=== PATIENT | female | born 1985 | race Caucasian/White ===

== ENCOUNTER 2022-07-03 19:09 | Emergency (ER) | payer OTHER, SELFPAY ==
[2022-07-03 19:14] VITALS: BP 112/80; PULSE 120; RESP 18; TEMP 36.8; O2SAT 100
--- NOTE | 2022-07-03 21:14 | ED.FEMALEGU ---
HPI - Female Genitourinary General Chief complaint: Vaginal Bleeding Stated complaint: heavy bleeding with period Time Seen by Provider: 07/03/22 21:12 Source: patient Mode of arrival: ambulatory Limitations: no limitations History of Present Illness HPI Narrative: Patient is a 36-year-old presenting to the emergency department for evaluation of heavy vaginal bleeding. Patient reports normal menstrual cycle beginning 7 days ago, states that has increased in heaviness over the past 36 hours with large blood clots and greater than 1 tampon every 2 hours. Patient denies any pain. No pelvic pain or cramping. Denies flank pain. She denies dysuria. Patient is denies lightheadedness or dizziness, states the amount of bleeding was making her nervous. Patient reports she was recently diagnosed with COVID, is worried that perhaps COVID could be affecting her menstrual cycle. Patient has no history of , does not believe she is . Patient denies any lightheadedness, dizziness, shortness of breath, syncopal episodes. Pt identified as non binary. Related Data Allergies Allergy/AdvReac Type Severity Reaction Status Date / Time No Known Allergies Allergy Verified 07/03/22 19:18 Review of Systems Review of Systems: CONSTITUTIONAL: Denies fever, chills, or sweats. EYES: Denies visual changes, redness, or discharge. ENT: Denies rhinorrhea, congestion, sore throat, or otalgia. CARDIOVASCULAR: Denies chest pain, palpitations, or edema. RESPIRATORY: Denies cough or dyspnea. GASTROINTESTINAL: Denies abdominal pain, nausea, vomiting, or diarrhea. GENITOURINARY: Denies dysuria or hematuria. Reports vaginal bleeding without discharge. SKIN: Denies rash or itching. MUSCULOSKELETAL: Denies back pain, joint pain, or myalgia. NEUROLOGIC: Denies headache, numbness, or weakness. FOR[facility], [facility] Surgical History Surgical History (Updated 07/03/22 @ 23:52 by Stacey Valerio MD) H/O eye surgery History of ear surgery Social History Social History (Updated 07/03/22 @ 23:53 by Stacey Valerio MD) Smoking status: Current some day smoker Alcohol intake: never Substance use: current Substance use type: marijuana Living arrangements: with family Occupation/Education: occupation Additional occupation/education comments: Works at [employer] Gender identity (if verbalized by the patient): Other Additional gender identity comments: Non binary Exam Narrative: GENERAL: Awake, alert, conversant, patient is anxious HEAD: Normocephalic, atraumatic. EYES: PERRLA and EOMI. ENT: Nares clear, no rhinorrhea or epistaxis. Mucous membranes moist. NECK: Supple. CHEST: No respiratory distress, breathing even and non labored HEART: Regular rate, sinus rhythm ABDOMEN:Non distended, non tender Labia majora and minora normal without lesions. Vagina with scant blood. No active bleeding. No cervical motion tenderness. No adnexal tenderness or fullness bilaterally. No discharge present. EXTREMITIES: Normal range of motion. No edema. SKIN: Warm, dry, no rash. NEURO:No focal deficits. Alert and oriented x3 Course Vital Signs Vital signs: Vital Signs Temperature 36.8 C 07/03/22 19:14 Pulse Rate 120 H 07/03/22 19:14 Respiratory Rate 18 07/03/22 19:14 Blood Pressure 112/80 07/03/22 19:14 Pulse Oximetry 100 07/03/22 19:14 Oxygen Delivery Room Air 07/03/22 19:14 Temperature 36.8 C 07/03/22 19:14 Pulse Rate 120 H 07/03/22 19:14 Respiratory Rate 18 07/03/22 19:14 Blood Pressure 112/80 07/03/22 19:14 Pulse Oximetry 100 07/03/22 19:14 Oxygen Delivery Room Air 07/03/22 19:14 MDM - Female Genitourinary MDM Narrative Medical decision making narrative: Patient presenting for evaluation of heavy vaginal bleeding without pain. At the time of assessment, no current active bleeding. Patient was tachycardic at the time of assessment, likely due to her anxiety. Patient identifies as not binary, does
[2022-07-03 22:05] LABS: Prothrombin Time 13.1 Seconds (11.1-14.7)
[2022-07-03 22:06] LABS: Partial Thromboplastin Time 30.5 SECONDS (22.3-36.8)
[2022-07-03 22:16] LABS: Alanine Aminotransferase 18 U/L (6-35); Albumin Level 4.7 g/dL (3.5-5.1); Alkaline Phosphatase 48 U/L (38-126); Anion Gap 12 mmol/L (8-16); Aspartate Amino Transferase 30 U/L (14-36); Bilirubin,Total 0.7 mg/dL (0.2-1.3); Blood Urea Nitrogen 20 mg/dL (7-17); Calcium 8.9 mg/dL (8.4-10.2); Carbon Dioxide 22 mmol/L (22-30); Chloride 104 mmol/L (98-107); Estimated CRCL calculation 73 ml/min; Estimated Glomerular Filt Rate > 60; Glucose 98 mg/dL (65-110); Potassium 4.1 mmol/L (3.4-5.0); Sodium 138 mmol/L (137-145)
[2022-07-03 22:37] LABS: Appearance Urine Slightly Cloudy (Clear); Bilirubin Urine Negative (Negative); Blood Urine 3+ (Negative); Color Urine Yellow (Yellow); Glucose Urine UA Negative (Negative); Ketones Urine Negative (Negative); Leukocyte Esterase Ur Negative LEU/UL (Negative); Nitrate Urine Negative (Negative); Protein Urine Negative (Negative); Specific Grav Ur <= 1.005 (1.001-1.035); Urobilinogen Urine 0.2 mg/dL (<2.0); pH Urine 5.5 (5.0-9.0)
[2022-07-03 23:04] LABS: Amorphous Sediment Urine Few; Mucus Urine Rare /lpf; RBC Urine 0-2 /hpf (0-2); Squamous Epithelial Cell Urine Few /hpf (Few); WBC Urine 0-3 /hpf
[2022-07-03 23:13] LABS: Add Urine Microscopic? YES
[2022-07-03 23:17] LABS: Basophils Percent Auto 0.5 % (0.2-1.2); Eosinophils Absolute Auto 0.1 K/mm3 (0-0.3); Hematocrit 38.9 % (37.0-47.0); Immature Granulocyte Absolute 0.03 K/mm3 (0.00-0.031); Immature Granulocyte Percent A 0.3 % (0-0.5); Lymphocytes Absolute Auto 1.76 K/mm3 (0.9-3.2); Lymphocytes Percent Auto 19.9 % (18.3-44.2); Mean Corpuscular HGB Conc 33.4 g/dl (32-36); Mean Corpuscular Hemoglobin 31.9 pg (26-34); Mean Corpuscular Volume 95.3 fl (80-100); Mean Platelet Volume 10.4 fl (7.4-10.4); Monocytes Absolute Auto 0.6 K/mm3 (0.1-0.6); Monocytes Percent Auto 6.9 % (2.6-8.5); Neutrophils Absolute Auto 6.3 K/mm3 (1.3-6.7); Neutrophils Percent Auto 71.4 % (45.5-73.1); Platelet Count Result 248 k/mm3 (150-375); Red Blood Count 4.08 M/mm3 (4.2-5.4); White Blood Count 8.8 K/mm3 (4.5-10.0)
== END 2022-07-04 00:19 | disposition home or self-care (01) ==
PROVIDERS: Emergency Provider Emergency Medicine
DX: N93.8 Other specified abnormal uterine and vaginal bleeding (principal); F17.210 Nicotine dependence, cigarettes, uncomplicated
CPT/HCPCS: 36415; 80053; 81001; 81025; 85025; 85610; 85730; 99283